=== PATIENT | female | born 1950 | race Caucasian/White ===

== ENCOUNTER → 2018-11-12 | Outpatient (REF) | payer MEDICARE, OTHER ==
[2018-11-12 16:57] LABS: ALT/SGPT 24 U/L (12-78); BLOOD UREA NITROGEN 20 MG/DL (7-18); CREATININE FOR GFR 0.97 MG/DL (0.55-1.30); GLOMERULAR FILTRATION RATE > 60.0 (>39)
[2018-11-12 17:14] LABS: BASO # 0.1 10^3/uL (0.0-0.2); EOS # 0.1 10^3/uL (0.0-0.50); EOS % 2.1 % (0.0-3.0); HEMATOCRIT 36.8 % (36.0-47.0); HEMOGLOBIN 11.6 g/dl (12.0-15.5); LYMPH # 1.1 10^3/uL (1.5-4.5); LYMPH % 21.4 % (24.0-44.0); MEAN CORPUSCULAR HEMOGLOBIN 27.9 pg (27.0-33.0); MEAN CORPUSCULAR HGB CONC 31.5 g/dl (32.0-36.5); MEAN CORPUSCULAR VOLUME 88.5 fl (80.0-96.0); MONO # 0.7 10^3/uL (0.0-0.8); MONO % 14.2 % (0.0-5.0); NEUTROPHILS # 3.1 10^3/uL (1.8-7.7); NEUTROPHILS % 60.9 % (36.0-66.0); PLATELET COUNT, AUTOMATED 278 10^3/uL (150-450); RED BLOOD COUNT 4.16 10^6/uL (4.00-5.40); WHITE BLOOD COUNT 5.1 10^3/uL (4.0-10.0)
[2018-11-12 18:08] LABS: ERYTHROCYTE SEDIMENTATION RATE 44 mm/hr (0-30)
== END ==
LOC: M LABDRWCV 16:12
DX: M06.4 Inflammatory polyarthropathy (principal); M15.0 Primary generalized (osteo)arthritis; J30.1 Allergic rhinitis due to pollen; J45.20 Mild intermittent asthma, uncomplicated; Z79.899 Other long term (current) drug therapy; L50.0 Allergic urticaria; M79.7 Fibromyalgia

== ENCOUNTER → 2018-12-15 | Outpatient (REF) | payer MEDICARE, OTHER ==
[2018-12-15 16:58] LABS: BASO # 0.1 10^3/uL (0.0-0.2); BASO % 0.8 % (0.0-1.0); EOS # 0.1 10^3/uL (0.0-0.5); EOS % 1.8 % (0.0-3.0); HEMATOCRIT 39.5 % (36.0-47.0); HEMOGLOBIN 12.4 g/dl (12.0-15.5); LYMPH # 1.7 10^3/uL (1.5-5.0); LYMPH % 27.9 % (24.0-44.0); MEAN CORPUSCULAR HEMOGLOBIN 28.4 pg (27.0-33.0); MEAN CORPUSCULAR HGB CONC 31.4 g/dl (32.0-36.5); MEAN CORPUSCULAR VOLUME 90.6 fl (80.0-96.0); MONO # 0.7 10^3/uL (0.0-0.8); MONO % 11.6 % (0.0-5.0); NEUTROPHILS # 3.6 10^3/uL (1.5-8.5); NEUTROPHILS % 57.6 % (36.0-66.0); PLATELET COUNT, AUTOMATED 230 10^3/uL (150-450); RED BLOOD COUNT 4.36 10^6/uL (4.00-5.40); WHITE BLOOD COUNT 6.2 10^3/uL (4.0-10.0)
[2018-12-15 17:19] LABS: C REACTIVE PROTEIN QUANTITATIV 0.97 MG/DL (0.00-0.30); CREATININE FOR GFR 1.02 MG/DL (0.55-1.30)
[2018-12-15 19:01] LABS: ERYTHROCYTE SEDIMENTATION RATE 25 mm/hr (0-30)
== END ==
LOC: M LABDRWCV 16:09
PROVIDERS: ATTEND Internal Medicine Rheumatology
DX: M06.4 Inflammatory polyarthropathy (principal); M15.0 Primary generalized (osteo)arthritis; J30.1 Allergic rhinitis due to pollen; J45.20 Mild intermittent asthma, uncomplicated; Z79.899 Other long term (current) drug therapy; L50.0 Allergic urticaria; M79.7 Fibromyalgia

== ENCOUNTER → 2019-09-23 | Outpatient (REF) | payer MEDICARE, OTHER ==
[2019-09-23 17:02] LABS: BASO # 0.1 10^3/uL (0.0-0.2); BASO % 1.1 % (0.0-1.0); EOS # 0.1 10^3/uL (0.0-0.5); EOS % 1.8 % (0.0-3.0); HEMATOCRIT 40.3 % (36.0-47.0); HEMOGLOBIN 12.9 g/dl (12.0-15.5); MEAN CORPUSCULAR HEMOGLOBIN 28.7 pg (27.0-33.0); MEAN CORPUSCULAR VOLUME 89.6 fl (80.0-96.0); MONO # 0.8 10^3/uL (0.0-0.8); MONO % 15.2 % (0.0-5.0); NEUTROPHILS # 2.5 10^3/uL (1.5-8.5); NEUTROPHILS % 45.7 % (36.0-66.0); PLATELET COUNT, AUTOMATED 263 10^3/uL (150-450); WHITE BLOOD COUNT 5.5 10^3/uL (4.0-10.0)
[2019-09-23 17:10] LABS: ALT/SGPT 33 U/L (12-78); BLOOD UREA NITROGEN 13 MG/DL (7-18); C REACTIVE PROTEIN QUANTITATIV < 0.30 MG/DL (0.00-0.30); CREATININE FOR GFR 0.86 MG/DL (0.55-1.30); GLOMERULAR FILTRATION RATE > 60.0 (>39)
[2019-09-23 17:27] LABS: ERYTHROCYTE SEDIMENTATION RATE 18 mm/hr (0-30)
== END ==
LOC: M LABDRAWC 15:53
PROVIDERS: ATTEND Internal Medicine Rheumatology
DX: M06.4 Inflammatory polyarthropathy (principal); M15.0 Primary generalized (osteo)arthritis; J30.1 Allergic rhinitis due to pollen; J45.20 Mild intermittent asthma, uncomplicated; Z79.899 Other long term (current) drug therapy; L50.0 Allergic urticaria; M79.7 Fibromyalgia

== ENCOUNTER → 2019-11-09 | Outpatient (REF) | payer MEDICARE, OTHER ==
[2019-11-09 18:28] LABS: ALT/SGPT 32 U/L (12-78); BLOOD UREA NITROGEN 16 MG/DL (7-18); C REACTIVE PROTEIN QUANTITATIV < 0.30 MG/DL (0.00-0.30); CREATININE FOR GFR 1.01 MG/DL (0.55-1.30); GLOMERULAR FILTRATION RATE 57.5 (>39)
[2019-11-09 18:31] LABS: BASO # 0.1 10^3/uL (0.0-0.2); BASO % 1.1 % (0.0-1.0); EOS # 0.1 10^3/uL (0.0-0.5); EOS % 1.1 % (0.0-3.0); HEMATOCRIT 40.7 % (36.0-47.0); HEMOGLOBIN 13.2 g/dl (12.0-15.5); LYMPH # 1.7 10^3/uL (1.5-5.0); LYMPH % 30.6 % (24.0-44.0); MEAN CORPUSCULAR HEMOGLOBIN 29.5 pg (27.0-33.0); MEAN CORPUSCULAR HGB CONC 32.4 g/dl (32.0-36.5); MEAN CORPUSCULAR VOLUME 91.1 fl (80.0-96.0); MONO # 1.2 10^3/uL (0.0-0.8); MONO % 20.7 % (0.0-5.0); NEUTROPHILS # 2.6 10^3/uL (1.5-8.5); NEUTROPHILS % 46.3 % (36.0-66.0); PLATELET COUNT, AUTOMATED 272 10^3/uL (150-450); RED BLOOD COUNT 4.47 10^6/uL (4.00-5.40); WHITE BLOOD COUNT 5.6 10^3/uL (4.0-10.0)
[2019-11-09 21:01] LABS: ERYTHROCYTE SEDIMENTATION RATE 17 mm/hr (0-30)
== END ==
LOC: M LABDRAWC 11:30
PROVIDERS: ATTEND Internal Medicine Rheumatology
DX: M06.4 Inflammatory polyarthropathy (principal); M15.0 Primary generalized (osteo)arthritis; J30.1 Allergic rhinitis due to pollen; J45.20 Mild intermittent asthma, uncomplicated; L50.0 Allergic urticaria; M79.7 Fibromyalgia; Z79.899 Other long term (current) drug therapy

== ENCOUNTER 2021-09-30 09:10 | Inpatient (IN) | payer MEDICARE, BC ==
[~2021-09-30] VITALS: Ht 157.5 cm; Wt 93.8 kg
[2021-09-30] MEDS: DOCUSATE SODIUM 100MG CAPSULE PO SCH ×2 (09:00→21:17)
[2021-09-30] MEDS ORDERED: fentaNYL 100 MCG/2 ML INJECTION IV ONE ×2 (09:45→11:30)
[2021-09-30 10:15] LABS: BASO % 0.3 % (0.0-1.0); EOS % 0.2 % (0.0-3.0); HEMATOCRIT 41.4 % (36.0-47.0); HEMOGLOBIN 13.7 g/dl (12.0-15.5); LYMPH # 1.2 10^3/uL (1.5-5.0); LYMPH % 13.4 % (24.0-44.0); MEAN CORPUSCULAR HEMOGLOBIN 29.8 pg (27.0-33.0); MEAN CORPUSCULAR HGB CONC 33.1 g/dl (32.0-36.5); MONO # 0.7 10^3/uL (0.0-0.8); MONO % 8.1 % (2.0-8.0); NEUTROPHILS % 77.6 % (36.0-66.0); PLATELET COUNT, AUTOMATED 210 10^3/uL (150-450)
[2021-09-30 10:39] LABS: BLOOD UREA NITROGEN 14 MG/DL (7-18); CALCIUM LEVEL 9.7 MG/DL (8.8-10.2); CARBON DIOXIDE LEVEL 29 MEQ/L (21-32); CHLORIDE LEVEL 100 MEQ/L (98-107); CREATININE FOR GFR 0.86 MG/DL (0.55-1.30); GLOMERULAR FILTRATION RATE > 60.0 (>39); GLUCOSE, FASTING 123 MG/DL (70-100); MAGNESIUM LEVEL 1.7 MG/DL (1.8-2.4); PHOSPHORUS LEVEL 3.1 MG/DL (2.5-4.9); POTASSIUM SERUM 4.4 MEQ/L (3.5-5.1); SODIUM LEVEL 136 MEQ/L (136-145)
[2021-09-30 10:48] LABS: INR 0.99; PARTIAL THROMBOPLASTIN TIME 32.4 SECONDS (25.9-37.0); PROTHROMBIN TIME 13.5 SECONDS (12.7-14.5)
[2021-09-30] MEDS ORDERED: ONDANSETRON 4MG 2ML VIAL IV ONE (11:30)
[2021-09-30] MEDS ORDERED: MAG SULF 1GM/100ML (MAG RUN) 1 GM in IV 1 EA IV ONE (12:00)
[2021-09-30] MEDS ORDERED: MOM 30ML SUSPENSION UDC PO PRN (12:05)
[2021-09-30] MEDS ORDERED: SING10TA32 PO (12:26)
[2021-09-30] MEDS ORDERED: METH2.5T48 PO (12:26)
[2021-09-30] MEDS ORDERED: METO200T28 PO (12:26)
[2021-09-30] MEDS ORDERED: THERTAB52 PO (12:26)
[2021-09-30] MEDS ORDERED: NEPH1TAB PO (12:26)
[2021-09-30] MEDS ORDERED: METF-839 PO (12:26)
[2021-09-30] MEDS ORDERED: OMEP1CAP73 PO (12:26)
[2021-09-30] MEDS ORDERED: SIMV40TA20 PO (12:26)
[2021-09-30] MEDS ORDERED: FOLI1TAB11 PO (12:26)
[2021-09-30] MEDS ORDERED: SYNT50TA PO (12:26)
[2021-09-30] MEDS ORDERED: LOSA100T5 PO (12:26)
[2021-09-30] MEDS ORDERED: IBUP-351 PO (12:26)
[2021-09-30] MEDS ORDERED: ACET500P3 PO (12:26)
[2021-09-30] MEDS ORDERED: GABA-282 PO (12:26)
[2021-09-30 13:13] LABS: RSV AMPLIFICATION NEGATIVE (NEGATIVE)
[2021-09-30] MEDS ORDERED: MESA1.2T PO (13:43)
[2021-09-30] MEDS ORDERED: PROB250C PO (13:45)
[2021-09-30] MEDS ORDERED: HOME MED LIST COMPLETE! XX SCH (13:50)
[2021-09-30] MEDS: NS 1,000 ML IV SCH (14:39)
[2021-09-30] MEDS: ONDANSETRON 4MG 2ML VIAL IV PRN ×2 (16:07→22:46)
[2021-09-30] MEDS: MORPHINE 4 MG/ML 1ML VIAL/SYRINGE IV PRN ×2 (16:15→20:07)
[2021-09-30] MEDS ORDERED: DEXTROSE 50% 50 ML SYRINGE IV PRN (17:20)
[2021-09-30] MEDS ORDERED: GLUCAGON INJ 1MG VIAL SC PRN (17:20)
[2021-09-30] MEDS ORDERED: GLUCOSE 4GM CHEW TABLET PO PRN (17:20)
[2021-09-30] MEDS: INSULIN LISPRO (NovoLOG) PER UNIT SC SCH ×2 (17:30→21:00)
[2021-09-30] MEDS ORDERED: KETAMINE HCL 200 MG/20 ML VIAL As Ordered ONE (18:06)
[2021-09-30 20:15] VITALS: BP 128/79
[2021-09-30] MEDS: GABAPENTIN 300 MG CAP PO SCH (21:17)
[2021-09-30] MEDS: FOLIC ACID 1 MG TAB PO SCH (21:17)
[2021-09-30] MEDS ORDERED: carisoprodoL 350 MG TAB PO PRN (21:50)
[2021-10-01] VITALS (9 sets, daily range): BP systolic 112–143; BP diastolic 61–90; O2SAT 95
[2021-10-01] MEDS: MORPHINE 4 MG/ML 1ML VIAL/SYRINGE IV PRN ×3 (00:57→15:12)
[2021-10-01] MEDS: ONDANSETRON 4MG 2ML VIAL IV PRN (05:03)
[2021-10-01] MEDS: NS 1,000 ML IV SCH (05:03)
[2021-10-01] MEDS: LEVOTHYROXINE 50MCG TABLET (0.05MG) PO SCH (05:04)
[2021-10-01 07:18] LABS: BASO % 0.3 % (0.0-1.0); EOS % 0.5 % (0.0-3.0); HEMOGLOBIN 12.4 g/dl (12.0-15.5); LYMPH % 13.8 % (24.0-44.0); MEAN CORPUSCULAR HGB CONC 33.5 g/dl (32.0-36.5); MEAN CORPUSCULAR VOLUME 89.4 fl (80.0-96.0); MONO # 0.8 10^3/uL (0.0-0.8); MONO % 10.7 % (2.0-8.0); NEUTROPHILS # 5.5 10^3/uL (1.5-8.5); NEUTROPHILS % 74.2 % (36.0-66.0); PLATELET COUNT, AUTOMATED 155 10^3/uL (150-450); RED BLOOD COUNT 4.14 10^6/uL (4.00-5.40); WHITE BLOOD COUNT 7.5 10^3/uL (4.0-10.0)
[2021-10-01] MEDS: INSULIN LISPRO (NovoLOG) PER UNIT SC SCH ×4 (07:30→21:00)
[2021-10-01 07:37] LABS: BLOOD UREA NITROGEN 12 MG/DL (7-18); CALCIUM LEVEL 8.2 MG/DL (8.8-10.2); CARBON DIOXIDE LEVEL 26 MEQ/L (21-32); CHLORIDE LEVEL 102 MEQ/L (98-107); CREATININE FOR GFR 0.59 MG/DL (0.55-1.30); GLOMERULAR FILTRATION RATE > 60.0 (>39); GLUCOSE, FASTING 129 MG/DL (70-100); SODIUM LEVEL 136 MEQ/L (136-145)
[2021-10-01] MEDS ORDERED: ONDANSETRON 4MG 2ML VIAL As Ordered ONE (07:46)
[2021-10-01] MEDS ORDERED: propofoL 500 MG/50 ML VIAL As Ordered ONE (07:46)
[2021-10-01] MEDS ORDERED: MIDAZOLAM INJ 2MG/2ML VIAL (J2250 PER 1MG) As Ordered ONE (07:46)
[2021-10-01] MEDS ORDERED: dexameTHASONE 4 MG/ML 1ML VIAL (J1100 PER 1MG) As Ordered ONE (07:46)
[2021-10-01] MEDS ORDERED: BUPIVACAINE/EPIN 0.5% 30 ML VIAL As Ordered ONE (08:19)
[2021-10-01] MEDS ORDERED: ceFAZolin 2 GM/D5W 50 ML IV BAG (J0690 PER 500MG) As Ordered ONE (08:19)
[2021-10-01] MEDS ORDERED: TRANEXAMIC ACID 100 MG/ML 10ML VIAL As Ordered ONE (08:19)
[2021-10-01] MEDS: FOLIC ACID 1 MG TAB PO SCH ×2 (09:00→20:54)
[2021-10-01] MEDS ORDERED: fentaNYL 100 MCG/2 ML INJECTION As Ordered ONE (09:00)
[2021-10-01] MEDS: DOCUSATE SODIUM 100MG CAPSULE PO SCH ×2 (09:00→20:54)
[2021-10-01] MEDS: METOPROLOL SUCC (TopROL XL) 100MG *XL* TAB PO SCH (09:00)
[2021-10-01] MEDS: GABAPENTIN 300 MG CAP PO SCH ×2 (09:00→20:53)
[2021-10-01] MEDS ORDERED: ROCURONIUM BROMIDE 50 MG/5 ML VIAL As Ordered ONE ×2 (09:00→11:12)
[2021-10-01] MEDS: SIMVASTATIN 40 MG TAB PO SCH (09:00)
[2021-10-01] MEDS ORDERED: HYDROmorphone HCL 2MG/ML 1ML VIAL As Ordered ONE (09:59)
[2021-10-01] MEDS ORDERED: SUGAMMADEX SODIUM 500 MG/5 ML VIAL (BRIDION) As Ordered ONE (11:25)
[2021-10-01] MEDS ORDERED: LR 1,000 ML IV SCH ×2 (12:10→13:20)
[2021-10-01] MEDS ORDERED: ONDANSETRON 4MG 2ML VIAL IV PRN ×2 (12:10→13:20)
[2021-10-01] MEDS ORDERED: fentaNYL 100 MCG/2 ML INJECTION IV PRN (12:10)
[2021-10-01] MEDS ORDERED: ALBUTEROL SULFATE 2.5 MG/0.5 ML INH NEB SOLN INH ONE (12:10)
[2021-10-01] MEDS: HYDROMORPHONE HCL 0.5 MG/ 0.5 ML SYRINGE (J1170 PER 1) IV PRN ×4 (12:22→12:45)
[2021-10-01] MEDS ORDERED: traMADol 50 MG TAB PO PRN (13:20)
[2021-10-01] MEDS ORDERED: SENNA 8.6 MG TAB (SENOKOT) PO PRN (13:20)
[2021-10-01] MEDS: ACETAMINOPHEN 500 MG TAB PO SCH ×2 (13:32→20:53)
[2021-10-01] MEDS: ceFAZolin SOD 2 GM in IV 1 EA IV SCH (17:56)
[2021-10-01] MEDS: ASPIRIN 81MG ENTERIC TABLET PO SCH (20:53)
[2021-10-01] MEDS ORDERED: NAPROXEN 250 MG TAB PO SCH (21:00)
[2021-10-01] MEDS ORDERED: DOCUSATE SODIUM 100MG CAPSULE PO SCH (21:00)
[2021-10-02] MEDS: ceFAZolin SOD 2 GM in IV 1 EA IV SCH (01:29)
[2021-10-02] MEDS: IBUPROFEN 600MG TAB PO PRN ×3 (01:40→17:29)
[2021-10-02 02:00] VITALS: BP 136/79
[2021-10-02] MEDS: LEVOTHYROXINE 50MCG TABLET (0.05MG) PO SCH (05:23)
[2021-10-02 05:33] LABS: BASO % 0.2 % (0.0-1.0); EOS # 0.1 10^3/uL (0.0-0.5); EOS % 0.7 % (0.0-3.0); HEMATOCRIT 31.4 % (36.0-47.0); HEMOGLOBIN 10.3 g/dl (12.0-15.5); LYMPH # 1.3 10^3/uL (1.5-5.0); LYMPH % 15.9 % (24.0-44.0); MEAN CORPUSCULAR HEMOGLOBIN 30.1 pg (27.0-33.0); MEAN CORPUSCULAR HGB CONC 32.8 g/dl (32.0-36.5); MEAN CORPUSCULAR VOLUME 91.8 fl (80.0-96.0); MONO # 1.1 10^3/uL (0.0-0.8); MONO % 12.9 % (2.0-8.0); NEUTROPHILS # 5.8 10^3/uL (1.5-8.5); NEUTROPHILS % 69.9 % (36.0-66.0); PLATELET COUNT, AUTOMATED 140 10^3/uL (150-450); RED BLOOD COUNT 3.42 10^6/uL (4.00-5.40); WHITE BLOOD COUNT 8.2 10^3/uL (4.0-10.0)
[2021-10-02 05:56] LABS: BLOOD UREA NITROGEN 15 MG/DL (7-18); CALCIUM LEVEL 8.1 MG/DL (8.8-10.2); CARBON DIOXIDE LEVEL 28 MEQ/L (21-32); CHLORIDE LEVEL 103 MEQ/L (98-107); CREATININE FOR GFR 0.87 MG/DL (0.55-1.30); GLOMERULAR FILTRATION RATE > 60.0 (>39); GLUCOSE, FASTING 103 MG/DL (70-100); POTASSIUM SERUM 4.3 MEQ/L (3.5-5.1); SODIUM LEVEL 137 MEQ/L (136-145)
[2021-10-02 06:00] VITALS: BP 134/77
[2021-10-02] MEDS: INSULIN LISPRO (NovoLOG) PER UNIT SC SCH ×3 (07:30→17:30)
[2021-10-02 07:55] VITALS: BP 142/75
[2021-10-02] MEDS: DOCUSATE SODIUM 100MG CAPSULE PO SCH (08:08)
[2021-10-02] MEDS: GABAPENTIN 300 MG CAP PO SCH (08:08)
[2021-10-02] MEDS: ACETAMINOPHEN 500 MG TAB PO SCH (08:09)
[2021-10-02] MEDS: ASPIRIN 81MG ENTERIC TABLET PO SCH (08:10)
[2021-10-02 08:11] VITALS: BP 142/77
[2021-10-02] MEDS: METOPROLOL SUCC (TopROL XL) 100MG *XL* TAB PO SCH (08:11)
[2021-10-02] MEDS: FOLIC ACID 1 MG TAB PO SCH (08:12)
[2021-10-02] MEDS: SIMVASTATIN 40 MG TAB PO SCH (08:13)
[2021-10-02] MEDS ORDERED: ASCORBIC ACID 500 MG TAB PO SCH (09:00)
[2021-10-02] MEDS ORDERED: FERROUS SULFATE 325MG TAB PO SCH (09:00)
[2021-10-02 09:59] VITALS: BP 114/67
[2021-10-02 14:00] VITALS: BP 117/66
[2021-10-02] MEDS ORDERED: IBUP-1022 PO (16:03)
[2021-10-02] MEDS ORDERED: FERR1TAB8 PO (16:03)
[2021-10-02] MEDS ORDERED: COLA100C5 PO (16:03)
[2021-10-02] MEDS ORDERED: MOM30SS2 PO (16:03)
[2021-10-02] MEDS ORDERED: ACET-683 PO (16:03)
[2021-10-02] MEDS ORDERED: ASCO50TA PO (16:03)
[2021-10-02] MEDS ORDERED: ASPI-551 PO (16:03)
== END 2021-10-02 18:40 | DRG 482 ==
LOC: M ED 09:10 → EDBD 09:10 → M ED INP 12:02 → ENRESERV 16:30 → ENRESERVTM 19:09 → M MS5PR 20:18
PROVIDERS: ADMIT Internal Medicine Nephrology; ATTEND Internal Medicine Nephrology
PROC: BQ14ZZZ Fluoroscopy of Left Femur (ICD-10-PCS; 2021-10-01)
PROC: 0SS904Z Reposition Right Hip Joint with Internal Fixation Device, Open Approach (ICD-10-PCS; principal; 2021-10-01 08:30)
DX: S72.141A Displaced intertrochanteric fracture of right femur, initial encounter for closed fracture (principal); S60.211A Contusion of right wrist, initial encounter; W01.0XXA Fall on same level from slipping, tripping and stumbling without subsequent striking against object, initial encounter; Y92.009 Unspecified place in unspecified non-institutional (private) residence as the place of occurrence of the external cause; E03.9 Hypothyroidism, unspecified; M06.9 Rheumatoid arthritis, unspecified; I10 Essential (primary) hypertension; E66.9 Obesity, unspecified; E11.42 Type 2 diabetes mellitus with diabetic polyneuropathy; E78.5 Hyperlipidemia, unspecified; J45.909 Unspecified asthma, uncomplicated; M35.3 Polymyalgia rheumatica; K21.9 Gastro-esophageal reflux disease without esophagitis; Z88.1 Allergy status to other antibiotic agents; Z88.5 Allergy status to narcotic agent; Z88.6 Allergy status to analgesic agent; Z88.7 Allergy status to serum and vaccine; Z91.018 Allergy to other foods; Z79.82 Long term (current) use of aspirin; Z79.84 Long term (current) use of oral hypoglycemic drugs; Z79.899 Other long term (current) drug therapy; Z95.828 Presence of other vascular implants and grafts; Z90.49 Acquired absence of other specified parts of digestive tract; Z90.79 Acquired absence of other genital organ(s); Z96.642 Presence of left artificial hip joint; Z20.822 Contact with and (suspected) exposure to COVID-19

== ENCOUNTER 2021-10-02 15:43 | Inpatient (IN) | payer MEDICARE, BC ==
[~2021-10-02] VITALS: Ht 157.5 cm; Wt 93.5 kg
[~2021-10-02 15:43] MED LIST: ACET500P3 PO; FOLI1TAB11 PO; GABA-282 PO; IBUP-351 PO; LOSA100T5 PO; MESA1.2T PO; METF-839 PO; METH2.5T48 PO; METO200T28 PO; NEPH1TAB PO; OMEP1CAP73 PO; PROB250C PO; SIMV40TA20 PO; SING10TA32 PO; SYNT50TA PO; THERTAB52 PO
[2021-10-02] MEDS ORDERED: MOM30SS2 PO (16:03)
[2021-10-02] MEDS ORDERED: FERR1TAB8 PO (16:03)
[2021-10-02] MEDS ORDERED: ASPI-551 PO (16:03)
[2021-10-02] MEDS ORDERED: ASCO50TA PO (16:03)
[2021-10-02] MEDS ORDERED: IBUP-1022 PO (16:03)
[2021-10-02] MEDS ORDERED: COLA100C5 PO (16:03)
[2021-10-02] MEDS ORDERED: ACET-683 PO (16:03)
[2021-10-02] MEDS ORDERED: oxyCODONE 5MG TAB PO PRN (17:05)
[2021-10-02] MEDS ORDERED: GLUCOSE 4GM CHEW TABLET PO PRN (17:05)
[2021-10-02] MEDS ORDERED: DEXTROSE 50% 50 ML SYRINGE IV PRN (17:05)
[2021-10-02] MEDS ORDERED: GLUCAGON INJ 1MG VIAL SC PRN (17:05)
[2021-10-02 18:35] VITALS: BP 151/68
[2021-10-02] MEDS ORDERED: HOME MED LIST COMPLETE! XX SCH (19:25)
[2021-10-02 20:00] VITALS: BP 121/61
[2021-10-02] MEDS: INSULIN LISPRO (NovoLOG) PER UNIT SC SCH (21:00)
[2021-10-02] MEDS ORDERED: SENNA 8.6 MG TAB (SENOKOT) PO SCH (21:00)
[2021-10-02] MEDS: REMEDY PHYTOPLEX Z-GUARD PASTE 113GM TUBE (FROM STOREROOM PRODUCT) TOP SCH (21:00)
[2021-10-02] MEDS: PANTOPRAZOLE 40MG TAB (PROTONIX) PO SCH (21:13)
[2021-10-02] MEDS: DOCUSATE SODIUM 100MG CAPSULE PO SCH (21:13)
[2021-10-02] MEDS: FOLIC ACID 1MG TAB PO SCH (21:13)
[2021-10-02] MEDS: GABAPENTIN 300 MG CAP PO SCH (21:13)
[2021-10-02] MEDS: ASPIRIN 81MG ENTERIC TABLET PO SCH (21:14)
[2021-10-02] MEDS: MESALAMINE 400 MG CAPSULE DELAYED RELEASE (DELZICOL) PO SCH (21:14)
[2021-10-02] MEDS: ACETAMINOPHEN 500 MG TAB PO SCH (21:15)
[2021-10-03 05:39] VITALS: BP 98/56
[2021-10-03 05:53] LABS: BASO # 0.1 10^3/uL (0.0-0.2); BASO % 0.8 % (0.0-1.0); EOS # 0.3 10^3/uL (0.0-0.5); EOS % 3.9 % (0.0-3.0); HEMATOCRIT 34.4 % (36.0-47.0); HEMOGLOBIN 11.2 g/dl (12.0-15.5); LYMPH # 1.8 10^3/uL (1.5-5.0); LYMPH % 24.6 % (24.0-44.0); MEAN CORPUSCULAR HEMOGLOBIN 29.9 pg (27.0-33.0); MEAN CORPUSCULAR HGB CONC 32.6 g/dl (32.0-36.5); MEAN CORPUSCULAR VOLUME 91.7 fl (80.0-96.0); MONO # 0.8 10^3/uL (0.0-0.8); MONO % 11.3 % (2.0-8.0); NEUTROPHILS # 4.3 10^3/uL (1.5-8.5); NEUTROPHILS % 59.1 % (36.0-66.0); PLATELET COUNT, AUTOMATED 160 10^3/uL (150-450); RED BLOOD COUNT 3.75 10^6/uL (4.00-5.40); WHITE BLOOD COUNT 7.2 10^3/uL (4.0-10.0)
[2021-10-03] MEDS: LEVOTHYROXINE 50MCG TABLET (0.05MG) PO SCH (06:03)
[2021-10-03 06:17] LABS: ALBUMIN 2.9 GM/DL (3.2-5.2); ALT/SGPT 34 U/L (12-78); BILIRUBIN,TOTAL 0.7 MG/DL (0.2-1.0); BLOOD UREA NITROGEN 15 MG/DL (7-18); CALCIUM LEVEL 8.8 MG/DL (8.8-10.2); CARBON DIOXIDE LEVEL 28 MEQ/L (21-32); CHLORIDE LEVEL 106 MEQ/L (98-107); CREATININE FOR GFR 0.75 MG/DL (0.55-1.30); GLOMERULAR FILTRATION RATE > 60.0 (>39); GLUCOSE, FASTING 98 MG/DL (70-100); POTASSIUM SERUM 4.1 MEQ/L (3.5-5.1); SODIUM LEVEL 140 MEQ/L (136-145); TOTAL PROTEIN 5.8 GM/DL (6.4-8.2)
[2021-10-03] MEDS: INSULIN LISPRO (NovoLOG) PER UNIT SC SCH ×4 (07:30→21:00)
[2021-10-03] MEDS ORDERED: traMADol 50 MG TAB PO ONE (08:15)
[2021-10-03] MEDS ORDERED: FERROUS SULFATE 325MG TAB PO SCH (09:00)
[2021-10-03] MEDS: REMEDY PHYTOPLEX Z-GUARD PASTE 113GM TUBE (FROM STOREROOM PRODUCT) TOP SCH ×3 (09:00→21:00)
[2021-10-03] MEDS: MESALAMINE 400 MG CAPSULE DELAYED RELEASE (DELZICOL) PO SCH ×4 (09:49→21:13)
[2021-10-03] MEDS: SIMVASTATIN 40 MG TAB PO SCH (09:49)
[2021-10-03] MEDS: MONTELUKAST 10 MG TAB PO SCH (09:49)
[2021-10-03] MEDS: ASPIRIN 81MG ENTERIC TABLET PO SCH ×2 (09:49→21:15)
[2021-10-03] MEDS: PANTOPRAZOLE 40MG TAB (PROTONIX) PO SCH ×2 (09:49→21:16)
[2021-10-03] MEDS: ACETAMINOPHEN 500 MG TAB PO SCH ×3 (09:50→21:16)
[2021-10-03] MEDS: DOCUSATE SODIUM 100MG CAPSULE PO SCH ×2 (09:50→21:16)
[2021-10-03] MEDS: ASCORBIC ACID 500 MG TAB PO SCH (09:50)
[2021-10-03] MEDS: GABAPENTIN 300 MG CAP PO SCH (09:51)
[2021-10-03] MEDS: FOLIC ACID 1MG TAB PO SCH ×2 (09:51→21:16)
[2021-10-03] MEDS: MOM 30ML SUSPENSION UDC PO PRN (09:52)
[2021-10-03] MEDS: METOPROLOL SUCC (TopROL XL) 100MG *XL* TAB PO SCH (09:52)
[2021-10-03] MEDS ORDERED: FLEET ENEMA PR PRN (12:35)
[2021-10-03] MEDS: SENNA 8.6 MG TAB (SENOKOT) PO SCH ×2 (13:46→21:14)
[2021-10-03] MEDS: LIDOCAINE 5% (LIDODERM) PATCH TD SCH (13:46)
[2021-10-03 14:00] VITALS: BP 104/54
[2021-10-03] MEDS: GABAPENTIN 400MG CAP PO SCH ×2 (16:50→21:14)
[2021-10-03] MEDS: SIMETHICONE 80MG CHEW TAB PO SCH ×2 (16:51→21:15)
[2021-10-03 20:00] VITALS: BP 115/47
[2021-10-03] MEDS: MORPHINE 30 MG TAB **MSIR PO PRN (21:15)
[2021-10-03] MEDS: DICLOFENAC EPOLAMINE 1.3 % PATCH TOP SCH (21:17)
[2021-10-03] MEDS: **NOTE PATIENT COMMENT** MISC XX SCH (21:18)
[2021-10-04] MEDS: LEVOTHYROXINE 50MCG TABLET (0.05MG) PO SCH (05:17)
[2021-10-04 06:00] VITALS: BP 129/63
[2021-10-04 07:00] LABS: BASO % 0.7 % (0.0-1.0); EOS # 0.1 10^3/uL (0.0-0.5); EOS % 2.6 % (0.0-3.0); HEMOGLOBIN 10.5 g/dl (12.0-15.5); LYMPH # 0.9 10^3/uL (1.5-5.0); LYMPH % 16.6 % (24.0-44.0); MEAN CORPUSCULAR HEMOGLOBIN 30.3 pg (27.0-33.0); MEAN CORPUSCULAR HGB CONC 32.8 g/dl (32.0-36.5); MEAN CORPUSCULAR VOLUME 92.2 fl (80.0-96.0); MONO # 0.7 10^3/uL (0.0-0.8); MONO % 12.3 % (2.0-8.0); NEUTROPHILS # 3.6 10^3/uL (1.5-8.5); NEUTROPHILS % 67.4 % (36.0-66.0); PLATELET COUNT, AUTOMATED 157 10^3/uL (150-450); RED BLOOD COUNT 3.47 10^6/uL (4.00-5.40); WHITE BLOOD COUNT 5.4 10^3/uL (4.0-10.0)
[2021-10-04 07:22] LABS: BLOOD UREA NITROGEN 13 MG/DL (7-18); CALCIUM LEVEL 8.8 MG/DL (8.8-10.2); CARBON DIOXIDE LEVEL 30 MEQ/L (21-32); CHLORIDE LEVEL 105 MEQ/L (98-107); CREATININE FOR GFR 0.74 MG/DL (0.55-1.30); GLOMERULAR FILTRATION RATE > 60.0 (>39); GLUCOSE, FASTING 107 MG/DL (70-100); SODIUM LEVEL 139 MEQ/L (136-145)
[2021-10-04] MEDS: MORPHINE 30 MG TAB **MSIR PO PRN ×2 (07:25→20:58)
[2021-10-04] MEDS: INSULIN LISPRO (NovoLOG) PER UNIT SC SCH (07:30)
[2021-10-04] MEDS: REMEDY PHYTOPLEX Z-GUARD PASTE 113GM TUBE (FROM STOREROOM PRODUCT) TOP SCH ×3 (09:00→20:57)
[2021-10-04] MEDS ORDERED: MIRALAX *UNIT DOSE* 17GM PACKET PO SCH (09:00)
[2021-10-04] MEDS: **hydrALAZINE HCL** 25 MG TAB PO SCH (09:00)
[2021-10-04] MEDS: MESALAMINE 400 MG CAPSULE DELAYED RELEASE (DELZICOL) PO SCH ×4 (09:46→20:57)
[2021-10-04] MEDS: DOCUSATE SODIUM 100MG CAPSULE PO SCH ×2 (09:46→20:58)
[2021-10-04] MEDS: ASPIRIN 81MG ENTERIC TABLET PO SCH ×2 (09:47→20:58)
[2021-10-04] MEDS: SIMETHICONE 80MG CHEW TAB PO SCH ×3 (09:47→20:58)
[2021-10-04] MEDS: FOLIC ACID 1MG TAB PO SCH ×2 (09:47→20:58)
[2021-10-04] MEDS: MONTELUKAST 10 MG TAB PO SCH (09:48)
[2021-10-04] MEDS: GABAPENTIN 400MG CAP PO SCH ×3 (09:48→20:57)
[2021-10-04] MEDS: SENNA 8.6 MG TAB (SENOKOT) PO SCH ×2 (09:48→21:02)
[2021-10-04] MEDS: PANTOPRAZOLE 40MG TAB (PROTONIX) PO SCH ×2 (09:48→20:58)
[2021-10-04] MEDS: ACETAMINOPHEN 500 MG TAB PO SCH ×3 (09:49→21:02)
[2021-10-04] MEDS: ASCORBIC ACID 500 MG TAB PO SCH (09:49)
[2021-10-04] MEDS: METOPROLOL SUCC (TopROL XL) 100MG *XL* TAB PO SCH (09:49)
[2021-10-04] MEDS: SIMVASTATIN 40 MG TAB PO SCH (09:49)
[2021-10-04] MEDS: DICLOFENAC EPOLAMINE 1.3 % PATCH TOP SCH ×2 (09:50→21:02)
[2021-10-04] MEDS: LIDOCAINE 5% (LIDODERM) PATCH TD SCH (09:50)
[2021-10-04 14:00] VITALS: BP 125/60
[2021-10-04 20:00] VITALS: BP 139/64
[2021-10-04] MEDS: **NOTE PATIENT COMMENT** MISC XX SCH (21:02)
[2021-10-05] MEDS: LEVOTHYROXINE 50MCG TABLET (0.05MG) PO SCH (05:25)
[2021-10-05 06:00] VITALS: BP 141/70
[2021-10-05] MEDS: MESALAMINE 400 MG CAPSULE DELAYED RELEASE (DELZICOL) PO SCH ×4 (08:59→21:00)
[2021-10-05] MEDS: LIDOCAINE 5% (LIDODERM) PATCH TD SCH (08:59)
[2021-10-05] MEDS: DICLOFENAC EPOLAMINE 1.3 % PATCH TOP SCH ×2 (08:59→20:18)
[2021-10-05] MEDS: DOCUSATE SODIUM 100MG CAPSULE PO SCH ×2 (08:59→20:17)
[2021-10-05] MEDS: SIMETHICONE 80MG CHEW TAB PO SCH ×3 (08:59→20:18)
[2021-10-05] MEDS: REMEDY PHYTOPLEX Z-GUARD PASTE 113GM TUBE (FROM STOREROOM PRODUCT) TOP SCH ×3 (09:00→20:19)
[2021-10-05] MEDS: ASPIRIN 81MG ENTERIC TABLET PO SCH ×2 (09:00→20:17)
[2021-10-05] MEDS: GABAPENTIN 400MG CAP PO SCH ×2 (09:00→09:02)
[2021-10-05] MEDS: **hydrALAZINE HCL** 25 MG TAB PO SCH (09:00)
[2021-10-05] MEDS: SIMVASTATIN 40 MG TAB PO SCH (09:00)
[2021-10-05] MEDS: SENNA 8.6 MG TAB (SENOKOT) PO SCH ×2 (09:01→20:17)
[2021-10-05] MEDS: METOPROLOL SUCC (TopROL XL) 100MG *XL* TAB PO SCH (09:01)
[2021-10-05] MEDS: ASCORBIC ACID 500 MG TAB PO SCH (09:02)
[2021-10-05] MEDS: PANTOPRAZOLE 40MG TAB (PROTONIX) PO SCH ×2 (09:02→20:18)
[2021-10-05] MEDS: ACETAMINOPHEN 500 MG TAB PO SCH ×3 (09:02→20:18)
[2021-10-05] MEDS: FOLIC ACID 1MG TAB PO SCH ×2 (09:02→20:17)
[2021-10-05] MEDS: MONTELUKAST 10 MG TAB PO SCH (09:02)
[2021-10-05] MEDS: GABAPENTIN 300 MG CAP PO SCH ×3 (10:57→20:18)
[2021-10-05] MEDS: MOM 30ML SUSPENSION UDC PO PRN (10:59)
[2021-10-05 14:00] VITALS: BP 132/67
[2021-10-05 20:00] VITALS: BP 125/61
[2021-10-05] MEDS: MORPHINE 30 MG TAB **MSIR PO PRN (20:17)
[2021-10-05] MEDS: **NOTE PATIENT COMMENT** MISC XX SCH (20:19)
[2021-10-06] MEDS: LEVOTHYROXINE 50MCG TABLET (0.05MG) PO SCH (05:38)
[2021-10-06] MEDS: MORPHINE 30 MG TAB **MSIR PO PRN ×3 (05:38→21:23)
[2021-10-06 06:00] VITALS: BP 139/71
[2021-10-06] MEDS: ASPIRIN 81MG ENTERIC TABLET PO SCH ×2 (08:14→21:24)
[2021-10-06] MEDS: MONTELUKAST 10 MG TAB PO SCH (08:14)
[2021-10-06] MEDS: DOCUSATE SODIUM 100MG CAPSULE PO SCH ×2 (08:15→21:25)
[2021-10-06] MEDS: SENNA 8.6 MG TAB (SENOKOT) PO SCH ×2 (08:15→21:25)
[2021-10-06] MEDS: ACETAMINOPHEN 500 MG TAB PO SCH ×3 (08:15→21:25)
[2021-10-06] MEDS: GABAPENTIN 300 MG CAP PO SCH ×3 (08:16→21:24)
[2021-10-06] MEDS: LIDOCAINE 5% (LIDODERM) PATCH TD SCH (08:16)
[2021-10-06] MEDS: PANTOPRAZOLE 40MG TAB (PROTONIX) PO SCH ×2 (08:16→21:25)
[2021-10-06] MEDS: SIMVASTATIN 40 MG TAB PO SCH (08:16)
[2021-10-06] MEDS: ASCORBIC ACID 500 MG TAB PO SCH (08:16)
[2021-10-06] MEDS: METOPROLOL SUCC (TopROL XL) 100MG *XL* TAB PO SCH (08:16)
[2021-10-06] MEDS: FOLIC ACID 1MG TAB PO SCH ×2 (08:16→21:25)
[2021-10-06] MEDS: REMEDY PHYTOPLEX Z-GUARD PASTE 113GM TUBE (FROM STOREROOM PRODUCT) TOP SCH ×3 (08:17→21:00)
[2021-10-06] MEDS: MESALAMINE 400 MG CAPSULE DELAYED RELEASE (DELZICOL) PO SCH (08:18)
[2021-10-06] MEDS: SIMETHICONE 80MG CHEW TAB PO SCH ×3 (08:21→21:25)
[2021-10-06] MEDS: DICLOFENAC EPOLAMINE 1.3 % PATCH TOP SCH ×2 (08:25→21:23)
[2021-10-06] MEDS: NIRMATRELVIR/RITONAVIR CO-PACK (EMERGENCY USE AUTH) PO SCH ×2 (10:30→21:24)
[2021-10-06] MEDS: COMBIVENT RESPIMAT 100-20MCG INHALER 4GM INH SCH ×3 (11:15→20:27)
[2021-10-06] MEDS: predniSONE 10 MG TAB PO SCH (11:59)
[2021-10-06] MEDS: SODIUM CHLORIDE NASAL 0.65% SPRAY BTL (OCEAN) SCH ×3 (12:00→21:26)
[2021-10-06] MEDS: guaiFENesin 200 MG TAB PO SCH ×3 (12:00→21:25)
[2021-10-06 14:00] VITALS: BP 144/68
[2021-10-06 20:00] VITALS: BP 148/67
[2021-10-06] MEDS: **NOTE PATIENT COMMENT** MISC XX SCH (21:26)
[2021-10-07 06:00] VITALS: BP 149/70
[2021-10-07] MEDS: LEVOTHYROXINE 50MCG TABLET (0.05MG) PO SCH (06:53)
[2021-10-07] MEDS: COMBIVENT RESPIMAT 100-20MCG INHALER 4GM INH SCH ×4 (07:30→19:08)
[2021-10-07] MEDS: IBUPROFEN 400MG TAB PO PRN (08:38)
[2021-10-07] MEDS: DOCUSATE SODIUM 100MG CAPSULE PO SCH ×2 (08:39→20:40)
[2021-10-07] MEDS: ASCORBIC ACID 500 MG TAB PO SCH (08:39)
[2021-10-07] MEDS: ASPIRIN 81MG ENTERIC TABLET PO SCH ×2 (08:39→20:39)
[2021-10-07] MEDS: FOLIC ACID 1MG TAB PO SCH ×2 (08:39→20:39)
[2021-10-07] MEDS: MONTELUKAST 10 MG TAB PO SCH (08:39)
[2021-10-07] MEDS: NIRMATRELVIR/RITONAVIR CO-PACK (EMERGENCY USE AUTH) PO SCH ×2 (08:39→20:40)
[2021-10-07] MEDS: SIMETHICONE 80MG CHEW TAB PO SCH ×3 (08:40→20:39)
[2021-10-07] MEDS: METOPROLOL SUCC (TopROL XL) 100MG *XL* TAB PO SCH (08:40)
[2021-10-07] MEDS: SENNA 8.6 MG TAB (SENOKOT) PO SCH ×2 (08:40→20:40)
[2021-10-07] MEDS: predniSONE 10 MG TAB PO SCH (08:40)
[2021-10-07] MEDS: guaiFENesin 200 MG TAB PO SCH ×3 (08:40→20:39)
[2021-10-07] MEDS: PANTOPRAZOLE 40MG TAB (PROTONIX) PO SCH ×2 (08:40→20:39)
[2021-10-07] MEDS: GABAPENTIN 300 MG CAP PO SCH ×3 (08:40→20:39)
[2021-10-07] MEDS: ACETAMINOPHEN 500 MG TAB PO SCH ×3 (08:41→20:40)
[2021-10-07] MEDS: SODIUM CHLORIDE NASAL 0.65% SPRAY BTL (OCEAN) SCH ×3 (08:42→20:42)
[2021-10-07] MEDS: LIDOCAINE 5% (LIDODERM) PATCH TD SCH (08:42)
[2021-10-07] MEDS: DICLOFENAC EPOLAMINE 1.3 % PATCH TOP SCH ×2 (08:42→20:39)
[2021-10-07] MEDS: REMEDY PHYTOPLEX Z-GUARD PASTE 113GM TUBE (FROM STOREROOM PRODUCT) TOP SCH ×3 (08:43→20:41)
[2021-10-07 14:00] VITALS: BP 138/67
[2021-10-07 19:57] VITALS: BP 131/62
[2021-10-07] MEDS: **NOTE PATIENT COMMENT** MISC XX SCH (20:42)
[2021-10-08] MEDS: MORPHINE 30 MG TAB **MSIR PO PRN ×2 (01:12→23:54)
[2021-10-08 05:57] VITALS: BP 151/69
[2021-10-08] MEDS: LEVOTHYROXINE 50MCG TABLET (0.05MG) PO SCH (06:37)
[2021-10-08] MEDS: IBUPROFEN 400MG TAB PO PRN (06:37)
[2021-10-08] MEDS: COMBIVENT RESPIMAT 100-20MCG INHALER 4GM INH SCH ×4 (07:08→19:46)
[2021-10-08] MEDS: REMEDY PHYTOPLEX Z-GUARD PASTE 113GM TUBE (FROM STOREROOM PRODUCT) TOP SCH ×3 (09:00→21:00)
[2021-10-08] MEDS: FOLIC ACID 1MG TAB PO SCH ×2 (09:00→21:10)
[2021-10-08] MEDS: NIRMATRELVIR/RITONAVIR CO-PACK (EMERGENCY USE AUTH) PO SCH ×2 (09:00→21:14)
[2021-10-08] MEDS: SIMETHICONE 80MG CHEW TAB PO SCH ×3 (09:00→21:07)
[2021-10-08] MEDS: predniSONE 10 MG TAB PO SCH (09:00)
[2021-10-08] MEDS: PANTOPRAZOLE 40MG TAB (PROTONIX) PO SCH ×2 (09:01→21:07)
[2021-10-08] MEDS: ASCORBIC ACID 500 MG TAB PO SCH (09:01)
[2021-10-08] MEDS: GABAPENTIN 300 MG CAP PO SCH ×3 (09:01→21:07)
[2021-10-08] MEDS: ASPIRIN 81MG ENTERIC TABLET PO SCH ×2 (09:01→21:07)
[2021-10-08] MEDS: guaiFENesin 200 MG TAB PO SCH ×3 (09:01→21:07)
[2021-10-08] MEDS: DOCUSATE SODIUM 100MG CAPSULE PO SCH ×2 (09:01→21:07)
[2021-10-08] MEDS: ACETAMINOPHEN 500 MG TAB PO SCH ×3 (09:01→21:08)
[2021-10-08] MEDS: METOPROLOL SUCC (TopROL XL) 100MG *XL* TAB PO SCH (09:02)
[2021-10-08] MEDS: DICLOFENAC EPOLAMINE 1.3 % PATCH TOP SCH ×2 (09:03→21:09)
[2021-10-08] MEDS: LIDOCAINE 5% (LIDODERM) PATCH TD SCH (09:03)
[2021-10-08] MEDS: SODIUM CHLORIDE NASAL 0.65% SPRAY BTL (OCEAN) SCH ×3 (09:03→21:00)
[2021-10-08] MEDS: SENNA 8.6 MG TAB (SENOKOT) PO SCH ×2 (09:06→21:00)
[2021-10-08] MEDS: MONTELUKAST 10 MG TAB PO SCH (09:06)
[2021-10-08 14:00] VITALS: BP 127/58
[2021-10-08 20:06] VITALS: BP 131/64
[2021-10-08] MEDS: **NOTE PATIENT COMMENT** MISC XX SCH (21:11)
[2021-10-09] MEDS: LEVOTHYROXINE 50MCG TABLET (0.05MG) PO SCH (06:38)
[2021-10-09 06:43] VITALS: BP 166/55
[2021-10-09] MEDS: COMBIVENT RESPIMAT 100-20MCG INHALER 4GM INH SCH ×4 (08:30→20:08)
[2021-10-09] MEDS: REMEDY PHYTOPLEX Z-GUARD PASTE 113GM TUBE (FROM STOREROOM PRODUCT) TOP SCH ×3 (09:00→20:36)
[2021-10-09] MEDS: DICLOFENAC EPOLAMINE 1.3 % PATCH TOP SCH ×2 (09:13→20:36)
[2021-10-09] MEDS: DOCUSATE SODIUM 100MG CAPSULE PO SCH ×2 (09:14→20:32)
[2021-10-09] MEDS: ASCORBIC ACID 500 MG TAB PO SCH (09:14)
[2021-10-09] MEDS: ASPIRIN 81MG ENTERIC TABLET PO SCH ×2 (09:14→20:32)
[2021-10-09] MEDS: LIDOCAINE 5% (LIDODERM) PATCH TD SCH (09:14)
[2021-10-09] MEDS: guaiFENesin 200 MG TAB PO SCH ×3 (09:14→20:32)
[2021-10-09] MEDS: PANTOPRAZOLE 40MG TAB (PROTONIX) PO SCH ×2 (09:14→20:32)
[2021-10-09] MEDS: SIMETHICONE 80MG CHEW TAB PO SCH ×3 (09:14→20:32)
[2021-10-09] MEDS: predniSONE 10 MG TAB PO SCH (09:14)
[2021-10-09] MEDS: SENNA 8.6 MG TAB (SENOKOT) PO SCH ×2 (09:15→20:32)
[2021-10-09] MEDS: FOLIC ACID 1MG TAB PO SCH ×2 (09:15→20:32)
[2021-10-09] MEDS: METOPROLOL SUCC (TopROL XL) 100MG *XL* TAB PO SCH (09:15)
[2021-10-09] MEDS: GABAPENTIN 300 MG CAP PO SCH ×3 (09:15→20:32)
[2021-10-09] MEDS: MONTELUKAST 10 MG TAB PO SCH (09:15)
[2021-10-09] MEDS: SODIUM CHLORIDE NASAL 0.65% SPRAY BTL (OCEAN) SCH ×3 (09:16→20:36)
[2021-10-09] MEDS: NIRMATRELVIR/RITONAVIR CO-PACK (EMERGENCY USE AUTH) PO SCH ×2 (09:18→20:35)
[2021-10-09] MEDS: ACETAMINOPHEN 500 MG TAB PO SCH ×3 (09:19→20:33)
[2021-10-09 09:57] LABS: BASO # 0.1 10^3/uL (0.0-0.2); BASO % 0.9 % (0.0-1.0); EOS # 0.3 10^3/uL (0.0-0.5); EOS % 3.2 % (0.0-3.0); HEMATOCRIT 34.4 % (36.0-47.0); LYMPH # 2.8 10^3/uL (1.5-5.0); LYMPH % 36.3 % (24.0-44.0); MEAN CORPUSCULAR HEMOGLOBIN 29.6 pg (27.0-33.0); MEAN CORPUSCULAR VOLUME 92.7 fl (80.0-96.0); MONO % 13.5 % (2.0-8.0); NEUTROPHILS # 3.5 10^3/uL (1.5-8.5); NEUTROPHILS % 45.6 % (36.0-66.0); PLATELET COUNT, AUTOMATED 341 10^3/uL (150-450); RED BLOOD COUNT 3.71 10^6/uL (4.00-5.40); WHITE BLOOD COUNT 7.7 10^3/uL (4.0-10.0)
[2021-10-09 10:25] LABS: BLOOD UREA NITROGEN 14 MG/DL (7-18); CALCIUM LEVEL 9.3 MG/DL (8.8-10.2); CARBON DIOXIDE LEVEL 30 MEQ/L (21-32); CHLORIDE LEVEL 100 MEQ/L (98-107); CREATININE FOR GFR 0.96 MG/DL (0.55-1.30); GLOMERULAR FILTRATION RATE > 60.0 (>39); GLUCOSE, FASTING 100 MG/DL (70-100); POTASSIUM SERUM 3.9 MEQ/L (3.5-5.1); SODIUM LEVEL 137 MEQ/L (136-145)
[2021-10-09 14:00] VITALS: BP 139/61
[2021-10-09 20:00] VITALS: BP 136/70
[2021-10-09] MEDS: MORPHINE 30 MG TAB **MSIR PO PRN (20:34)
[2021-10-09] MEDS: **NOTE PATIENT COMMENT** MISC XX SCH (20:36)
[2021-10-10] MEDS: LEVOTHYROXINE 50MCG TABLET (0.05MG) PO SCH (05:50)
[2021-10-10 06:00] VITALS: BP 163/68
[2021-10-10 06:15] VITALS: BP 130/76
[2021-10-10] MEDS: COMBIVENT RESPIMAT 100-20MCG INHALER 4GM INH SCH ×4 (08:13→20:26)
[2021-10-10] MEDS: LIDOCAINE 5% (LIDODERM) PATCH TD SCH (08:37)
[2021-10-10] MEDS: MOM 30ML SUSPENSION UDC PO PRN (08:38)
[2021-10-10] MEDS: DICLOFENAC EPOLAMINE 1.3 % PATCH TOP SCH ×2 (08:38→22:00)
[2021-10-10] MEDS: MONTELUKAST 10 MG TAB PO SCH (08:39)
[2021-10-10] MEDS: METOPROLOL SUCC (TopROL XL) 100MG *XL* TAB PO SCH (08:39)
[2021-10-10] MEDS: GABAPENTIN 300 MG CAP PO SCH ×3 (08:39→21:59)
[2021-10-10] MEDS: guaiFENesin 200 MG TAB PO SCH ×3 (08:39→22:00)
[2021-10-10] MEDS: SENNA 8.6 MG TAB (SENOKOT) PO SCH ×2 (08:39→21:59)
[2021-10-10] MEDS: SIMETHICONE 80MG CHEW TAB PO SCH ×3 (08:39→21:59)
[2021-10-10] MEDS: predniSONE 10 MG TAB PO SCH (08:40)
[2021-10-10] MEDS: ASPIRIN 81MG ENTERIC TABLET PO SCH ×2 (08:40→21:59)
[2021-10-10] MEDS: PANTOPRAZOLE 40MG TAB (PROTONIX) PO SCH ×2 (08:40→21:59)
[2021-10-10] MEDS: DOCUSATE SODIUM 100MG CAPSULE PO SCH ×2 (08:40→21:59)
[2021-10-10] MEDS: FOLIC ACID 1MG TAB PO SCH ×2 (08:40→21:59)
[2021-10-10] MEDS: IBUPROFEN 400MG TAB PO PRN ×2 (08:40→16:57)
[2021-10-10] MEDS: ASCORBIC ACID 500 MG TAB PO SCH (08:41)
[2021-10-10] MEDS: ACETAMINOPHEN 500 MG TAB PO SCH ×4 (08:41→22:00)
[2021-10-10] MEDS: SODIUM CHLORIDE NASAL 0.65% SPRAY BTL (OCEAN) SCH ×3 (08:41→22:02)
[2021-10-10] MEDS: REMEDY PHYTOPLEX Z-GUARD PASTE 113GM TUBE (FROM STOREROOM PRODUCT) TOP SCH ×3 (08:42→21:00)
[2021-10-10] MEDS: NIRMATRELVIR/RITONAVIR CO-PACK (EMERGENCY USE AUTH) PO SCH ×2 (09:50→22:01)
[2021-10-10 14:00] VITALS: BP 116/64
[2021-10-10 20:00] VITALS: BP 119/54
[2021-10-10] MEDS: **NOTE PATIENT COMMENT** MISC XX SCH (21:00)
[2021-10-10] MEDS: MORPHINE 30 MG TAB **MSIR PO PRN (21:59)
[2021-10-11] MEDS: LEVOTHYROXINE 50MCG TABLET (0.05MG) PO SCH (05:18)
[2021-10-11 05:30] VITALS: BP 148/70
[2021-10-11 07:02] LABS: BASO # 0.1 10^3/uL (0.0-0.2); EOS # 0.1 10^3/uL (0.0-0.5); EOS % 1.9 % (0.0-3.0); HEMATOCRIT 36.1 % (36.0-47.0); HEMOGLOBIN 11.4 g/dl (12.0-15.5); LYMPH # 2.6 10^3/uL (1.5-5.0); LYMPH % 42.1 % (24.0-44.0); MEAN CORPUSCULAR HEMOGLOBIN 29.6 pg (27.0-33.0); MEAN CORPUSCULAR HGB CONC 31.6 g/dl (32.0-36.5); MEAN CORPUSCULAR VOLUME 93.8 fl (80.0-96.0); MONO # 0.5 10^3/uL (0.0-0.8); MONO % 8.7 % (2.0-8.0); NEUTROPHILS # 2.8 10^3/uL (1.5-8.5); NEUTROPHILS % 45.2 % (36.0-66.0); PLATELET COUNT, AUTOMATED 424 10^3/uL (150-450); RED BLOOD COUNT 3.85 10^6/uL (4.00-5.40); WHITE BLOOD COUNT 6.2 10^3/uL (4.0-10.0)
[2021-10-11] MEDS: COMBIVENT RESPIMAT 100-20MCG INHALER 4GM INH SCH ×4 (07:15→19:47)
[2021-10-11 07:22] LABS: BLOOD UREA NITROGEN 16 MG/DL (7-18); CALCIUM LEVEL 9.7 MG/DL (8.8-10.2); CARBON DIOXIDE LEVEL 32 MEQ/L (21-32); CHLORIDE LEVEL 99 MEQ/L (98-107); CREATININE FOR GFR 0.84 MG/DL (0.55-1.30); GLOMERULAR FILTRATION RATE > 60.0 (>39); GLUCOSE, FASTING 94 MG/DL (70-100); POTASSIUM SERUM 4.2 MEQ/L (3.5-5.1); SODIUM LEVEL 135 MEQ/L (136-145)
[2021-10-11] MEDS: REMEDY PHYTOPLEX Z-GUARD PASTE 113GM TUBE (FROM STOREROOM PRODUCT) TOP SCH ×3 (09:00→21:00)
[2021-10-11] MEDS: DOCUSATE SODIUM 100MG CAPSULE PO SCH ×2 (10:01→21:00)
[2021-10-11] MEDS: ASPIRIN 81MG ENTERIC TABLET PO SCH ×2 (10:01→22:19)
[2021-10-11] MEDS: guaiFENesin 200 MG TAB PO SCH ×3 (10:01→22:20)
[2021-10-11] MEDS: SIMETHICONE 80MG CHEW TAB PO SCH ×3 (10:01→22:20)
[2021-10-11] MEDS: predniSONE 5 MG TAB PO SCH (10:02)
[2021-10-11] MEDS: ACETAMINOPHEN 500 MG TAB PO SCH ×3 (10:02→22:20)
[2021-10-11] MEDS: MONTELUKAST 10 MG TAB PO SCH (10:02)
[2021-10-11] MEDS: FOLIC ACID 1MG TAB PO SCH ×2 (10:02→22:21)
[2021-10-11] MEDS: SENNA 8.6 MG TAB (SENOKOT) PO SCH ×2 (10:02→21:00)
[2021-10-11] MEDS: GABAPENTIN 300 MG CAP PO SCH ×3 (10:02→22:21)
[2021-10-11] MEDS: PANTOPRAZOLE 40MG TAB (PROTONIX) PO SCH ×2 (10:02→22:21)
[2021-10-11] MEDS: LIDOCAINE 5% (LIDODERM) PATCH TD SCH (10:04)
[2021-10-11] MEDS: ASCORBIC ACID 500 MG TAB PO SCH (10:04)
[2021-10-11] MEDS: DICLOFENAC EPOLAMINE 1.3 % PATCH TOP SCH ×2 (10:04→22:22)
[2021-10-11] MEDS: METOPROLOL SUCC (TopROL XL) 100MG *XL* TAB PO SCH (10:13)
[2021-10-11] MEDS: SODIUM CHLORIDE NASAL 0.65% SPRAY BTL (OCEAN) SCH ×3 (10:14→22:26)
[2021-10-11 19:23] VITALS: BP 98/57
[2021-10-11] MEDS: **NOTE PATIENT COMMENT** MISC XX SCH (21:00)
[2021-10-12] MEDS: MORPHINE 30 MG TAB **MSIR PO PRN (00:59)
[2021-10-12] MEDS: LEVOTHYROXINE 50MCG TABLET (0.05MG) PO SCH (05:34)
[2021-10-12 05:53] VITALS: BP 102/60
[2021-10-12 06:15] VITALS: BP 123/59
[2021-10-12] MEDS: COMBIVENT RESPIMAT 100-20MCG INHALER 4GM INH SCH ×2 (07:45→11:07)
[2021-10-12] MEDS: guaiFENesin 200 MG TAB PO SCH (07:56)
[2021-10-12] MEDS: DOCUSATE SODIUM 100MG CAPSULE PO SCH (07:56)
[2021-10-12] MEDS: FOLIC ACID 1MG TAB PO SCH (07:56)
[2021-10-12] MEDS: PANTOPRAZOLE 40MG TAB (PROTONIX) PO SCH (07:56)
[2021-10-12] MEDS: ASPIRIN 81MG ENTERIC TABLET PO SCH (07:56)
[2021-10-12] MEDS: SIMETHICONE 80MG CHEW TAB PO SCH (07:56)
[2021-10-12] MEDS: MONTELUKAST 10 MG TAB PO SCH (07:56)
[2021-10-12] MEDS: ASCORBIC ACID 500 MG TAB PO SCH (07:57)
[2021-10-12] MEDS: GABAPENTIN 300 MG CAP PO SCH (07:57)
[2021-10-12] MEDS: SENNA 8.6 MG TAB (SENOKOT) PO SCH (07:57)
[2021-10-12] MEDS: predniSONE 5 MG TAB PO SCH (07:57)
[2021-10-12] MEDS: SODIUM CHLORIDE NASAL 0.65% SPRAY BTL (OCEAN) SCH (07:58)
[2021-10-12] MEDS: ACETAMINOPHEN 500 MG TAB PO SCH (08:04)
[2021-10-12] MEDS: LIDOCAINE 5% (LIDODERM) PATCH TD SCH (08:05)
[2021-10-12] MEDS: REMEDY PHYTOPLEX Z-GUARD PASTE 113GM TUBE (FROM STOREROOM PRODUCT) TOP SCH (08:05)
[2021-10-12] MEDS: DICLOFENAC EPOLAMINE 1.3 % PATCH TOP SCH (08:05)
[2021-10-12 08:11] VITALS: BP 118/58
[2021-10-12] MEDS: METOPROLOL SUCC (TopROL XL) 100MG *XL* TAB PO SCH (08:11)
[2021-10-12] MEDS ORDERED: METO200T28 PO (09:50)
[2021-10-12] MEDS ORDERED: SING10TA32 PO (09:50)
[2021-10-12] MEDS ORDERED: SIMV40TA20 PO (09:50)
[2021-10-12] MEDS ORDERED: HYDR-3490 PO (09:50)
[2021-10-12] MEDS ORDERED: SYNT50TA PO (09:50)
[2021-10-12] MEDS ORDERED: GABA-282 PO (09:50)
[2021-10-12] MEDS ORDERED: ASPI-551 PO (09:50)
[2021-10-12] MEDS ORDERED: FOLI1TAB11 PO (09:50)
[2021-10-12] MEDS ORDERED: MSIR30TA PO (09:53)
[2021-10-12] MEDS ORDERED: PANT40TA29 PO (09:53)
[2021-10-12] MEDS ORDERED: PRED5TA PO (09:53)
[2021-10-12] MEDS ORDERED: SIME80TA16 PO (09:55)
== END 2021-10-12 13:45 | disposition home or self-care (01) | DRG 559 ==
LOC: M PM&R 18:35
PROVIDERS: ADMIT Physical Medicine & Rehabilitation; ATTEND Physical Medicine & Rehabilitation
DX: S72.001D Fracture of unspecified part of neck of right femur, subsequent encounter for closed fracture with routine healing (principal); U07.1 COVID-19; E11.42 Type 2 diabetes mellitus with diabetic polyneuropathy; M35.3 Polymyalgia rheumatica; I71.4 Abdominal aortic aneurysm, without rupture; E78.5 Hyperlipidemia, unspecified; J45.909 Unspecified asthma, uncomplicated; E03.9 Hypothyroidism, unspecified; E66.9 Obesity, unspecified; D64.9 Anemia, unspecified; I10 Essential (primary) hypertension; K59.00 Constipation, unspecified; R53.83 Other fatigue; R60.0 Localized edema; Z74.09 Other reduced mobility; Z74.1 Need for assistance with personal care; Z79.82 Long term (current) use of aspirin; Z79.899 Other long term (current) drug therapy; Z79.84 Long term (current) use of oral hypoglycemic drugs; Z88.7 Allergy status to serum and vaccine; Z88.5 Allergy status to narcotic agent; Z88.8 Allergy status to other drugs, medicaments and biological substances; Z91.040 Latex allergy status; Z91.048 Other nonmedicinal substance allergy status; Z90.49 Acquired absence of other specified parts of digestive tract; Z96.642 Presence of left artificial hip joint

== ENCOUNTER → 2021-11-09 | Outpatient (CLI) | payer MEDICARE, BC ==
[~2021-11-09] MED LIST changes: +ACET-683 PO; +ASCO50TA PO; +ASPI-551 PO; +COLA100C5 PO; +FERR1TAB8 PO; +HYDR-3490 PO; +IBUP-1022 PO; +MOM30SS2 PO; +MSIR30TA PO; +PANT40TA29 PO; +PRED5TA PO; +SIME80TA16 PO
== END ==
LOC: M SOG 09:24
PROVIDERS: ATTEND Orthopaedic Surgery Adult Reconstructive Orthopaedic Surgery
DX: S72.141D Displaced intertrochanteric fracture of right femur, subsequent encounter for closed fracture with routine healing (principal); X58.XXXD Exposure to other specified factors, subsequent encounter; Y92.89 Other specified places as the place of occurrence of the external cause

== ENCOUNTER 2023-10-10 07:10 | Emergency (ER) | payer MEDICARE, BC ==
[~2023-10-10] VITALS: Ht 157.5 cm; Wt 97.7 kg
[~2023-10-10 07:10] MED LIST changes: +METO200T15 PO; -METO200T28 PO; +MONT-5 PO; -SING10TA32 PO
[2023-10-10] MEDS: CYCLOBENZAPRINE 10MG TABLET PO ONE (11:34)
[2023-10-10] MEDS: traMADol 50 MG TAB PO ONE (11:35)
[2023-10-10] MEDS ORDERED: TRAM50TA2 PO (12:56)
[2023-10-10] MEDS ORDERED: CYCL-707 PO (12:56)
[2023-10-10 13:14] VITALS: BP 128/60; TEMP 96.7; O2SAT 97
== END 2023-10-10 13:32 | disposition home or self-care (01) ==
LOC: M ED 07:10
DX: S32.048A Other fracture of fourth lumbar vertebra, initial encounter for closed fracture (principal); S29.012A Strain of muscle and tendon of back wall of thorax, initial encounter; W18.49XA Other slipping, tripping and stumbling without falling, initial encounter; Y92.009 Unspecified place in unspecified non-institutional (private) residence as the place of occurrence of the external cause; Y93.89 Activity, other specified; Y99.9 Unspecified external cause status; E11.9 Type 2 diabetes mellitus without complications; I10 Essential (primary) hypertension; E78.5 Hyperlipidemia, unspecified; K21.9 Gastro-esophageal reflux disease without esophagitis; I71.9 Aortic aneurysm of unspecified site, without rupture; M48.02 Spinal stenosis, cervical region; M48.061 Spinal stenosis, lumbar region without neurogenic claudication; Z79.899 Other long term (current) drug therapy; Z88.5 Allergy status to narcotic agent; Z88.7 Allergy status to serum and vaccine; Z88.1 Allergy status to other antibiotic agents; Z91.018 Allergy to other foods; Z91.040 Latex allergy status